=== PATIENT | male | born 1975 | race Caucasian/White ===

== ENCOUNTER 2017-08-05 20:55 | Emergency (ER) | payer SELFPAY ==
[~2017-08-05] VITALS: Ht 175.3 cm; Wt 68.2 kg
[2017-08-05] MEDS ORDERED: ASPIRIN 81 MG TAB.CHEW PO ONE (21:45)
--- NOTE | 2017-08-05 21:45 | PHYS DOC ---
Past History Past Medical History: Other Past Surgical History: No Surgical History Alcohol Use: Occasionally Drug Use: None Adult General Chief Complaint Chief Complaint: SHORTNESS OF BREATH HPI HPI Patient is a 42 year old male who presents with complaint of shortness of breath with exertion. Patient states that he started having symptoms today while working. The patient states that he felt like he has been getting winded more so than usual today. Patient denies any symptoms yesterday. Patient states that he has had occasional cough and notes that he has occasionally coughed up small amounts of blood. 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 Patient denies any other significant past medical history. Patient states that he is an active smoker with greater than [id number] history. Patient denies any other health problems. Patient has had no associated fevers with his symptoms. Patient does admit that he's had intermittent chest pain along the left side of his chest but denies any pain currently. Patient has not taken medications for his symptoms. Review of Systems Review of Systems Constitutional: Denies fever or chills [] Eyes: Denies change in visual acuity, redness, or eye pain [] HENT: Denies nasal congestion or sore throat [] Respiratory: Shortness of breath, occasional cough productive of small amounts of blood[] Cardiovascular: Chest pain, denies edema[] GI: Denies abdominal pain, nausea, vomiting, bloody stools or diarrhea [] : Denies dysuria or hematuria [] Musculoskeletal: Denies back pain or joint pain [] Integument: Denies rash or skin lesions [] Neurologic: Denies headache, focal weakness or sensory changes [] All other systems were reviewed and found to be within normal limits, except as documented in this note. Current Medications Current Medications Current Medications Medications (Trade) Dose Ordered Sig/Hi Start Time Stop Time Status Last Admin Dose Admin Aspirin (Children'S Aspirin) 324 mg 1X ONCE 08/05/17 21:45 08/05/17 21:46 Allergies Allergies Allergies Coded Allergies Type Severity Reaction Last Updated Verified penicillin G Allergy Intermediate 08/05/17 Yes Physical Exam Physical Exam Constitutional: Alert, afebrile, no acute distress, vital signs stable. [] HENT: Normocephalic, atraumatic, bilateral external ears normal, oropharynx moist, no oral exudates, nose normal. [] Eyes: PERRLA, EOMI, conjunctiva normal, no discharge. [] Neck: Normal range of motion, no tenderness, supple, no stridor. [] Cardiovascular:Heart rate regular rhythm, no murmur [] Lungs & Thorax: None restricted air movement bilaterally, occasional rhonchi, no rales, no wheezes[] Abdomen: Bowel sounds normal, soft, no tenderness, no masses, no pulsatile masses. [] Skin: Warm, dry, no erythema, no rash. [] Back: No tenderness, no CVA tenderness. [] Extremities: No tenderness, no cyanosis, no clubbing, ROM intact, no edema. [] Neurologic: Alert and oriented X 3, normal motor function, normal sensory function, no focal deficits noted. [] Current Patient Data Vital Signs Vital Signs Date Time Temp Pulse Resp B/P (MAP) Pulse Ox O2 Delivery O2 Flow Rate FiO2 08/05/17 21:08 98.1 72 18 98 Room Air EKG EKG Interpreted by me: Heart rate 77, sinus rhythm, normal intervals, normal axis, no acute ST/T-wave abnormalities present[] Radiology/Procedures Radiology/Procedures Two-view chest x-ray interpreted by me: Bilateral hilar nodules appreciated, no acute infiltrates or effusions, normal cardiac silhouette[] Course & Med Decision Making Course & Med Decision Making Pertinent Labs and Imaging studies reviewed. (See chart for details) Patient's vital signs are stable and patient's exam is unremarkable. Blood work shows no significant acute findings at this time. The patient's symptoms may be secondary to mild bronchitis or reactive airway type disease. The patient will be put on albuterol inhaler and a short course of prednisone for treatment. Advise follow-up with primary doctor in the next 1-2 weeks for reevaluation. Advised return emergency department for any worsening symptoms. Patient voiced understanding and in agreement with treatment plan. Dragon Disclaimer Dragon Disclaimer This electronic medical record was generated, in whole or in part, using a voice recognition dictation system. Departure Departure: Impression: Primary Impression: Bronchitis Disposition: 01 HOME, SELF-CARE Condition: STABLE Referrals: PCP,UNKNOWN (PCP) Patient Instructions: Bronchitis Additional Instructions: Follow-up with your primary doctor in the next 1-2 weeks for reevaluation. Return to emergency department for any worsening symptoms. Scripts Prednisone (PREDNISONE) 20 Mg Tablet 1 TAB PO BID, #10 TAB Prov: ASCENCION TINOCO MD 08/05/17 Albuterol Sulfate (VENTOLIN HFA INHALER) 18 Gm Hfa.aer.ad 2-4 PUFF IH Q4HRS Y for SHORTNESS OF BREATH, #1 INHALER 0 Refills Prov: ASCENCION TINOCO MD 08/05/17 ASCENCION TINOCO MD August 05, 2017 21:45
[2017-08-05 21:54] LABS: BASO # 0.1 x10^3/uL (0.0-0.2); BASO % 1 % (0-3); EOS # 0.6 x10^3/uL (0.0-0.7); EOS % 7 % (0-3); HEMATOCRIT 47.7 % (39.0-53.0); HEMOGLOBIN 16.3 g/dL (13.0-17.5); LYMPH % 26 % (24-48); MEAN CORPUSCULAR HEMOGLOBIN 31 pg (25-35); MEAN CORPUSCULAR HGB CONC 34 g/dL (31-37); MEAN CORPUSCULAR VOLUME 89 fL (79-100); MONO # 0.8 x10^3/uL (0.0-1.1); MONO % 11 % (0-9); NEUT # 4.4 x10^3uL (1.8-7.7); NEUT % 56 % (31-73); PLATELET COUNT 383 x10^3/uL (140-400); RED BLOOD COUNT 5.35 x10^6/uL (4.30-5.70); RED CELL DISTRIBUTION WIDTH 13.6 % (11.5-14.5); WHITE BLOOD COUNT 7.9 x10^3/uL (4.0-11.0)
[2017-08-05 22:13] LABS: ALBUMIN 3.9 g/dL (3.4-5.0); ALBUMIN/GLOBULIN RATIO 1.1 (1.0-1.7); CALCIUM 9.3 mg/dL (8.5-10.1); GFR 81.2; MAGNESIUM 1.9 mg/dL (1.8-2.4); POTASSIUM 4.4 mmol/L (3.5-5.1); TOTAL BILIRUBIN 0.2 mg/dL (0.2-1.0); TOTAL PROTEIN 7.5 g/dL (6.4-8.2)
[2017-08-05] MEDS ORDERED: ALBU18HF IH (22:35)
[2017-08-05] MEDS ORDERED: PRED20TA PO (22:35)
[2017-08-05 22:40] VITALS: BP 135/92
--- NOTE | 2017-08-06 01:42 | EKG ---
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
--- NOTE | 2017-08-06 08:29 | RAD ---
AP and Lateral Views of the Chest 08/05/2017 9:51 PM Indication: shortness of breath, chest pain . History of lung nodules. Comparison: None Findings: There is no focal infiltrate identified. There is a somewhat ill-defined nodular opacity measuring approximately 1.7 cm in diameter. This may represent a pulmonary nodule is described provided history.. No evidence of pneumothorax or pleural effusion. No acute osseous abnormalities are identified. Impression: 1. 1.7 cm nodular opacity left upper lung. This may represent the pulmonary nodule mentioned in the provided history. Recommend CT for further evaluation if not already performed. 2. No other acute cardiopulmonary process is identified. Electronically signed by: Dmitri Morrison MD (08/06/2017 8:26 AM) [id number]
== END 2017-08-05 22:41 | disposition home or self-care (01) ==
LOC: ER 20:55
DX: J40 Bronchitis, not specified as acute or chronic (principal); Z88.0 Allergy status to penicillin
CPT/HCPCS: 36415; 71046; 80053; 82553; 83735; 84484; 85025; 93005; 99285-25